=== PATIENT | male | born 1995 | race Caucasian/White ===

== ENCOUNTER 2018-05-22 02:10 | Emergency (ER) | payer MEDICAID, SELFPAY ==
[~2018-05-22] VITALS: Ht 175.3 cm; Wt 79.1 kg
[2018-05-22 02:12] VITALS: BP 168/82
== END 2018-05-22 02:56 | disposition home or self-care (01) ==
LOC: ED 02:10
DX: K08.89 Other specified disorders of teeth and supporting structures (principal)
CPT/HCPCS: 99283